=== PATIENT | male | born 1980 | race Two or more races ===

== ENCOUNTER 2024-02-28 15:01 | Outpatient (CLI) | payer OTHER | END 2024-02-28 15:27 | disposition home or self-care (01) | LOC: SONOGRAMA 15:01 | PROVIDERS: ATTEND General Practice | DX: M25.511 Pain in right shoulder (principal) ==

== ENCOUNTER 2024-02-29 14:57 | Outpatient (CLI) | payer OTHER | END 2024-02-29 15:17 | disposition home or self-care (01) | LOC: SONOGRAMA 14:57 | PROVIDERS: ATTEND General Practice | DX: M25.511 Pain in right shoulder (principal) ==